=== PATIENT | male | born 1970 | race Caucasian/White ===

== ENCOUNTER → 2019-11-27 08:45 | Outpatient (BNVA) | payer OTHER, SELFPAY | PROVIDERS: Family Provider Nurse Practitioner Family; PCP Registered Nurse; Visit Provider Registered Nurse | DX: J11.1 Influenza due to unidentified influenza virus with other respiratory manifestations (principal); R68.89 Other general symptoms and signs | CPT/HCPCS: 87804 ==

== ENCOUNTER → 2020-06-18 10:18 | Outpatient (BNVA) | payer OTHER, SELFPAY | PROVIDERS: Family Provider Nurse Practitioner Family; PCP Registered Nurse; Visit Provider Registered Nurse | DX: I10 Essential (primary) hypertension (principal) | CPT/HCPCS: 80053; 80061; 85025 ==

== ENCOUNTER → 2020-10-31 10:40 | Outpatient (BNVA) | payer OTHER, SELFPAY | PROVIDERS: Family Provider Nurse Practitioner Family; PCP Registered Nurse; Visit Provider Surgery | DX: Z20.822 Contact with and (suspected) exposure to COVID-19 (principal); Z12.11 Encounter for screening for malignant neoplasm of colon | CPT/HCPCS: 87635 ==

== ENCOUNTER 2020-11-06 07:37 | Day surgery (SDC) | payer OTHER, SELFPAY ==
[2020-11-04 09:43] VITALS: BMI 44.6
--- NOTE | 2020-11-06 07:56 | P.HP_ITS ---
Same Day Surgery H&P Indication for Procedure/HPI DATE OF PROCEDURE: November 06, 2020 CHIEF COMPLAINT/INDICATIONFOR SURGICAL PROCEDURE: Screening colonoscopy PREOP DIAGNOSIS: Screening colonoscopy PLANNED PROCEDRUE: Operation Date: 11/06/20 08:00 Proposed Procedures p Colonoscopy 32871 z12.11(Not Applicable) - Jair Crocker MD This is a pleasant 49 years old gentleman referred to my practice to discuss screening colonoscopy as he never had one before. Patient denies history of nonintentional weight loss or bleeding per rectum. Patient reports to me that he was adopted so he does not know much about the family history of colon cancer. Interim history 11/06/2020 Patient comes today for screening colonoscopy ROS All systems have been reviewed negative except as per the above or per problem list Medications/Allergies* Allergies/Adverse Reactions Allergy/AdvReac Type Severity Reaction Status Date / Time Penicillins Allergy Unknown Verified 11/06/20 08:01 Pertinent History/Comorbid Conditions* Medical History (Updated 06/19/20 @ 10:05 by EVERTON Arriola) Hypertension Morbid obesity with BMI of 50.0-59.9, adult Pertinent Exam Findings alert, oriented x 3, clear to auscultation bilaterally, regular rate & rhythm and procedure specific exam findings (Abdominal examination nontender nondistended soft, morbidly obese) Recommendations Surgery/Procedure today (Colonoscopy possible biopsy,possible polypectomy) Other Plans: Plan of care; After thorough history and physical examination and reviewing the chart, plan to perform screening colonoscopy. I discussed with the patient in details the risks,benefits,alternatives and indications.The risk of aspiration, bleeding, soft tissue injury, perforation of the colon and other potential concomitant complications were explained to the patient in details,also the potential need for Laproscoy/Laparotomy to repair any related complications including but not limited to colectomy and or Closotomy.The patient understood this well and did agree to proceed. Rationale was carefully and clearly discussed with the patient.Appropriate informed consent have been reviewed and signed All questions have been answered and all concerns have been addressed to patient's satisfaction. Verbal and written Instructions were given to the patient for colonoscopy prep Coding Level of Care Code [facility] Field Coordinator for Edwina Archuleta
[2020-11-06 07:57] VITALS: BP 159/100; PULSE 76; RESP 18; TEMP 36.5; O2SAT 97
[2020-11-06] MEDS: sodium chloride 0.9% 1,000 ML 30 ML IV (08:06)
--- NOTE | 2020-11-06 08:10 | ANES.PREANE2 ---
Pre-Anesthetic Assessment Pre-Anesthetic Assessment: Height/Weight: Height 1.8 m Weight 145.15 kg Temp Pulse Resp BP Pulse Ox 97.7 F 76 18 159/100 97 11/06/20 07:57 11/06/20 07:57 11/06/20 07:57 11/06/20 07:57 11/06/20 07:57 Preop Diagnosis: Screening colonoscopy Proposed Procedure: Operation Date: 11/06/20 08:00 Proposed Procedures p Colonoscopy 07848 z12.11(Not Applicable) - Jair Crocker MD Familial anesthetic complications: None Was Beta Birgida taken within 24 hours: N/A Last intake: Intake Last Liquid Date 11/05/20 Last Liquid Time 23:40 Last Solid Date 11/04/20 Last Solid Time 20:00 Social: Social History: No alcohol and No tobacco Exam: Pre-Anes Outpt Exam: alert, oriented x 3, clear to auscultation bilaterally and regular rate & rhythm Airway: Cervical ROM: WNL MP: 4 Dentition: Caps and Partials Additional comments: full cee Pulmonary: Pulmonary: Sleep apnea (undiagnosed) CV/HEM: CV/HEM: HTN Metabolic: Metabolic: Morbid obesity Neuropsych: Comments: hx encephalitis - no issues currently Anesthetic Plan: ASA status: 2 Anesthesia: MAC Risk of > 500 ml blood loss (7ml/kg in children): No Meds/Allergies Current Medications: Current Medications Generic Name Dose Route Start Last Admin Trade Name Freq PRN Reason Stop Dose Admin Sodium Chloride 1,000 mls @ 30 ml s/hr 11/06/20 08:00 11/06/20 08:06 Sodium Chloride 0.9% IV 30 mls/hr .Q24H DEBBY Administration PFSH Anesthesia PFSH: Medical History (Updated 10/31/20 @ 10:23 by Shannon Gallardo RN) Hypertension Morbid obesity with BMI of 50.0-59.9, adult Data Anesthesia Cardiac Studies: No Data to Display
[2020-11-06 09:07] VITALS: BP 109/70; PULSE 79; RESP 16; TEMP 36.6; O2SAT 93
[2020-11-06 09:25] VITALS: BP 114/65; PULSE 73; RESP 18; O2SAT 96
--- NOTE | 2020-11-06 19:59 | ANE.PACU2 ---
Inpatient post-anesthesia follow up: Airway intact: Yes Vital signs: Temperature 97.8 F Pulse Rate 73 Respiratory Rate 18 Blood Pressure 114/65 Pulse Oximetry 96 Oxygen Delivery Me thod Room Air Oxygen Flow Rate Fraction of Inspir ed Oxygen Hydration adequate: Yes Nausea and vomiting: No Pain level: 1 Mental status: Baseline
== END 2020-11-06 09:37 | disposition home or self-care (01) ==
PROVIDERS: PCP Registered Nurse; Visit Provider Surgery
PROC: 0DJD8ZZ Inspection of Lower Intestinal Tract, Via Natural or Artificial Opening Endoscopic (ICD-10-PCS; CPT 45378; principal; 2020-11-06 08:00)
DX: D12.2 Benign neoplasm of ascending colon (principal); D12.5 Benign neoplasm of sigmoid colon; K57.30 Diverticulosis of large intestine without perforation or abscess without bleeding; Z12.11 Encounter for screening for malignant neoplasm of colon; I10 Essential (primary) hypertension; E66.01 Morbid (severe) obesity due to excess calories; Z68.43 Body mass index [BMI] 50.0-59.9, adult; G47.30 Sleep apnea, unspecified
CPT/HCPCS: 45380; 88305; J2704; J7030

== ENCOUNTER → 2020-12-27 10:36 | Outpatient (BNVA) | payer OTHER, SELFPAY | PROVIDERS: PCP Registered Nurse; Visit Provider Registered Nurse | DX: M25.561 Pain in right knee (principal); M19.90 Unspecified osteoarthritis, unspecified site; I10 Essential (primary) hypertension; G47.33 Obstructive sleep apnea (adult) (pediatric) | CPT/HCPCS: 85025; 85651; 86140 ==

== ENCOUNTER 2021-01-03 14:46 | Outpatient (CLI) | payer OTHER, SELFPAY ==
--- NOTE | 2021-01-03 14:57 | XR_ITS ---
WS: [id number] Right knee, 3 views, 01/03/2021 Clinical Data: M25.561 - Pain in right knee Comparison: None. Findings: No fractures or dislocations are seen. The joint spaces are normal. The patella is intact. The soft t issues are unremarkable. There is a small spur of the medial femoral condyle. XR/XR knee RT 3V* [id number] Impression: Minimal spur of the medial femoral condyle of the right knee.
== END 2021-01-03 14:47 | disposition home or self-care (01) ==
PROVIDERS: PCP Registered Nurse; Visit Provider Registered Nurse
DX: M25.561 Pain in right knee (principal); M76.891 Other specified enthesopathies of right lower limb, excluding foot
CPT/HCPCS: 73562

== ENCOUNTER → 2021-08-07 08:55 | Outpatient (BNVA) | payer OTHER, SELFPAY | PROVIDERS: PCP Registered Nurse; Visit Provider Registered Nurse | DX: I10 Essential (primary) hypertension (principal); Z02.89 Encounter for other administrative examinations; G47.33 Obstructive sleep apnea (adult) (pediatric); E66.01 Morbid (severe) obesity due to excess calories; Z68.43 Body mass index [BMI] 50.0-59.9, adult | CPT/HCPCS: 80053; 80061 ==

== ENCOUNTER → 2021-08-08 10:07 | Outpatient (BNVA) | payer OTHER, SELFPAY | PROVIDERS: PCP Registered Nurse; Visit Provider Registered Nurse | DX: R73.01 Impaired fasting glucose (principal) | CPT/HCPCS: 83036 ==

== ENCOUNTER → 2021-12-17 09:07 | Outpatient (BNVA) | payer OTHER, SELFPAY | PROVIDERS: PCP Registered Nurse; Referring Provider Registered Nurse; Visit Provider Specialist | DX: M25.561 Pain in right knee (principal) | CPT/HCPCS: 73560; 73565 ==

== ENCOUNTER 2022-05-29 10:17 | Outpatient (CLI) | payer OTHER, SELFPAY ==
--- NOTE | 2022-05-29 | MR_ITS ---
WS: [id number] MRI RIGHT KNEE HISTORY: M25.561 - Pain in right knee COMPARISON: 12/17/2021 Anterior cruciate ligament: There is extensive increased T2 signal throughout the ACL. Normal fibers are very difficult to visualize. The fibers which are present course normally. I suspect this is all advanced mucoid degeneration and not a tear. Posterior cruciate ligament: Intact. Medial collateral ligament: MCL is being displaced from the joint by an extruded meniscus and osteoph ytes. The ligament appears intact. Posterior lateral corner structures: Intact. Medial menisci: Abnormal signal throughout nearly the entire posterior horn. Abnormal signal extends to the free edge and also the superior and inferior articular surfaces. Signal and lobular appearance of the meniscus at the meniscal root. The anterior horn is normal. There is also a radial tear towar ds the central meniscus. Lateral meniscus: Intact. Normal signal, size and shape. Extensor mechanism: Distal quadriceps tendon and patellar tendons are intact. Fluid and soft tissue: Small suprapatellar joint effusion. No Baeza's cyst. Osseous and articular structures: Patellofemoral compartment: Normal. Medial compartment: Moderate narrowing of the medial compartment with loss of cartilage. Loss of cart ilage involving the femoral condyle surface and tibial plateau along the weightbearing surface with e xtrusion of the meniscus. Subchondral marrow edema in the femoral condyle and tibial plateau. Small m arginal osteophytes. Lateral compartment: Very mild narrowing of the lateral compartment with preservation of the cartilag e. No marrow edema. MR/MR knee RT wo con* [id number] IMPRESSION: 1. Complex tear posterior horn medial meniscus with extrusion from the joint l ine. 2. Moderate joint space narrowing with chondromalacia medial compartment. Lucius tional subchondral edema involving the femoral condyle and tibial plateau. 3. Extensive mucoid degeneration in the ACL.
== END 2022-05-29 10:18 | disposition home or self-care (01) ==
PROVIDERS: PCP Registered Nurse; Visit Provider Specialist
DX: S83.231A Complex tear of medial meniscus, current injury, right knee, initial encounter; M25.861 Other specified joint disorders, right knee; M23.611 Other spontaneous disruption of anterior cruciate ligament of right knee; X58.XXXA Exposure to other specified factors, initial encounter
CPT/HCPCS: 73721

== ENCOUNTER → 2022-09-07 11:03 | Outpatient (BNVA) | payer OTHER, SELFPAY | PROVIDERS: PCP Registered Nurse; Visit Provider Registered Nurse | DX: I10 Essential (primary) hypertension (principal); M17.11 Unilateral primary osteoarthritis, right knee; Z79.1 Long term (current) use of non-steroidal anti-inflammatories (NSAID); E66.01 Morbid (severe) obesity due to excess calories; Z68.42 Body mass index [BMI] 45.0-49.9, adult; H10.10 Acute atopic conjunctivitis, unspecified eye | CPT/HCPCS: 80053; 80061; 85025 ==

== ENCOUNTER → 2023-03-15 14:35 | Outpatient (BNVA) | payer OTHER, SELFPAY | PROVIDERS: PCP Registered Nurse; Visit Provider Specialist | DX: M17.11 Unilateral primary osteoarthritis, right knee (principal); E66.01 Morbid (severe) obesity due to excess calories; I10 Essential (primary) hypertension; Z68.43 Body mass index [BMI] 50.0-59.9, adult; Z79.1 Long term (current) use of non-steroidal anti-inflammatories (NSAID) | CPT/HCPCS: 73560; 73565; 80053; 83036 ==

== ENCOUNTER → 2023-08-27 08:58 | Outpatient (BNVA) | payer OTHER, SELFPAY | PROVIDERS: PCP Registered Nurse; Visit Provider Registered Nurse | DX: I10 Essential (primary) hypertension (principal); E66.01 Morbid (severe) obesity due to excess calories; Z68.43 Body mass index [BMI] 50.0-59.9, adult; Z02.89 Encounter for other administrative examinations; G47.33 Obstructive sleep apnea (adult) (pediatric); Z68.41 Body mass index [BMI] 40.0-44.9, adult | CPT/HCPCS: 80053; 80061; 85025 ==

== ENCOUNTER → 2024-05-24 11:19 | Outpatient (BNVA) | payer OTHER, SELFPAY | PROVIDERS: PCP Registered Nurse; Visit Provider Registered Nurse | DX: Z13.1 Encounter for screening for diabetes mellitus (principal); I10 Essential (primary) hypertension | CPT/HCPCS: 80053; 80061; 83036; 84443; 85025 ==

== ENCOUNTER 2024-06-30 12:50 | Outpatient (CLI) | payer OTHER, SELFPAY ==
--- NOTE | 2024-06-30 12:55 | XR_ITS ---
WS: [id number] XR knee LT 3V* [id number] REASON FOR EXAM: BILATERAL KNEE PAIN FINDINGS: No fracture or focal bone lesion. The nonweightbearing AP view demonstrates mild narrowing of the medial knee joint space with moderate subchondral sclerosis. Medial joint space narrowing of the left knee appears more significant on the weightbearing view of 03/15/2023. Lateral knee joint space is intact without significant narrowing. Patellofemoral joint space is intact with moderate subchondral sclerosis and osteophytosis. Significa nt superior and inferior enthesophytes of the patella. XR/XR knee LT 3V* [id number] IMPRESSION: Mild osteoarthritis of the left knee.
--- NOTE | 2024-06-30 12:55 | XR_ITS ---
WS: [email or web address] XR knee RT 3V* [id number] REASON FOR EXAM: BILATERAL KNEE PAIN FINDINGS: Possible small joint effusion. There is mild to moderate narrowing of the medial knee joint space with moderate subchondral sclerosi s and mild marginal osteophytosis. Narrowing of the medial knee joint space appears more significant on the weightbearing view of the 03/15/2023. Lateral knee joint space is intact with minimal narrowing. The patellofemoral joint space is intact with mild subchondral sclerosis. XR/XR knee RT 3V* [id number] IMPRESSION: Moderate osteoarthritis in the right knee.
--- NOTE | 2024-06-30 12:55 | XR_ITS ---
WS: [id number] XR lumbar spine min 4V [id number] REASON FOR EXAM: LOW BACK PAIN FINDINGS: Normal lumbar spine curvatures. Mild narrowing of the L1-L2 disc space with mild to moderate endplate sclerosis and osteophytosis of L1 and L2. The remaining vertebral bodies and disc spaces are without abnormality. No spondylolysis. No significant spondylolisthesis. XR/XR lumbar spine min 4V [id number] IMPRESSION: Degenerative spondylosis of the lumbar spine as above.
== END 2024-06-30 12:51 | disposition home or self-care (01) ==
LOC: RAD 12:52
PROVIDERS: PCP Registered Nurse; Visit Provider Nurse Practitioner Family
DX: M47.896 Other spondylosis, lumbar region (principal); M17.11 Unilateral primary osteoarthritis, right knee; M25.762 Osteophyte, left knee; M22.2X2 Patellofemoral disorders, left knee
CPT/HCPCS: 72110; 73562

== ENCOUNTER → 2025-08-06 08:09 | Outpatient (BNVA) | payer OTHER, SELFPAY | PROVIDERS: PCP Registered Nurse; Visit Provider Registered Nurse | DX: I10 Essential (primary) hypertension (principal) | CPT/HCPCS: 80053; 80061; 83036 ==